=== PATIENT | male | born 1975 | race Caucasian/White ===

== ENCOUNTER → 2021-02-07 14:11 | Outpatient (CLI) | payer SELFPAY, OTHER ==
--- NOTE | 2021-02-07 14:19 | VDLE_ITS ---
Reason For Study: Rt calf pain RIGHT LEFT GSV is normal. CFV is compressible, spontaneous, phasic, CFV is compressible, spontaneous, phasic, competent, and demonstrates normal competent and demonstrates normal augmentation. augmentation. FV is compressible, spontaneous, phasic, competent and demonstrates normal augmentation. POP V is compressible, spontaneous, phasic, competent and demonstrates normal augmentation. T/P Trunk is compressible. PTV is compressible. RT PerV is compressible. Acute deep vein thrombosis is noted in the right GastrocV and SoleusV. Procedure This is a venous duplex using B-mode, color flow and spectral Doppler. Exam performed in department. A preliminary report was called and/or faxed to Dr. Cedillo. VL/Venous Duplex US, Unilateral Interpretation Summary Acute deep vein thrombosis is noted in the right gastrocnemius vein. Acute deep vein thrombosis is noted in the right soleus vein. The remainder of the right lower extremity deep venous system is patent and compressible. Valvular competence appears intact within the proximal deep venous system on the right . The right great saphenous vein appears patent and compressible s egmentally. Ordering Physician: Lowell Cedillo Referring Physician: Lowell Cedillo Performed By: Darshana Hawkins RVT
== END ==
PROVIDERS: PCP Family Medicine; Referring Provider Family Medicine; Visit Provider Family Medicine
DX: M79.661 Pain in right lower leg (principal); M79.89 Other specified soft tissue disorders
CPT/HCPCS: 93971